=== PATIENT | female | born 1980 | race Caucasian/White ===

== ENCOUNTER 2016-06-17 08:33 | Emergency (ER) | payer BC, MEDICARE ==
[~2016-06-17] VITALS: Ht 170.2 cm; Wt 91.0 kg
[~2016-06-17 08:33] MED LIST: ALPR0.5T10 PO; ASPI-496 PO; ATOR10TA9 PO; BUPR100T11 PO; BUPR75TA6 PO; HYDR-3138 PO; METO-93 PO; METO50TA82 PO; OMEP40CA6 PO; SERT100T5 PO; TRAZ100T15 PO
[2016-06-17] MEDS ORDERED: SODIUM CHLORIDE 0.9% 1,000 ML IV ONE (08:45)
[2016-06-17 08:56] LABS: HEMOGLOBIN 12.7 g/dL (11.7-16.4)
[2016-06-17] MEDS ORDERED: KETOROLAC 30 MG/1 ML IVPush ONE (09:00)
[2016-06-17] MEDS ORDERED: MORPHINE SULFATE 4 MG/ML, 1ML IVPush PRN (09:00)
[2016-06-17] MEDS ORDERED: KETOROLAC 30 MG/1 ML ONE (09:04)
[2016-06-17] MEDS ORDERED: morphine SULFATE 10 MG/ML, 1ML ONE (09:04)
[2016-06-17 09:09] LABS: ASPARTATE AMINO TRANSFERASE 10 U/L (15-37); BLOOD UREA NITROGEN 16 mg/dL (7-18)
[2016-06-17 09:14] LABS: IS PT STATUS REG ER OR PRE ER? YES
[2016-06-17 11:40] VITALS: BP 117/76
== END 2016-06-17 12:36 | disposition left against medical advice (07) ==
LOC: ED 08:48
DX: R07.89 Other chest pain (principal); Z95.0 Presence of cardiac pacemaker
CPT/HCPCS: 36415; 71010; 80053; 83880; 84484; 85025; 85610; 93005; 96361; 96374; 96375; 99285; J1885; J7030

== ENCOUNTER 2016-08-03 20:58 | Emergency (ER) | payer BC, MEDICARE ==
[~2016-08-03] VITALS: Ht 170.2 cm; Wt 84.7 kg
[2016-08-03] MEDS ORDERED: SODIUM CHLORIDE FLUSH 10ML SYR IVF ONE (23:00)
[2016-08-03] MEDS ORDERED: ONDANSETRON 2MG/ML, 2ML IVPush ONE (23:00)
[2016-08-03] MEDS ORDERED: SODIUM CHLORIDE 0.9% 1,000ML IVBOLUS ONE (23:00)
[2016-08-03] MEDS ORDERED: ONDANSETRON 2MG/ML, 2ML ONE (23:03)
[2016-08-03] MEDS ORDERED: MORPHINE SULFATE 4 MG/ML, 1ML ONE (23:03)
[2016-08-03] MEDS: MORPHINE SULFATE 4 MG/ML, 1ML IVPush PRN (23:04)
[2016-08-03 23:22] LABS: BLOOD UREA NITROGEN 19 mg/dL (7-18)
[2016-08-03 23:28] LABS: ASPARTATE AMINO TRANSFERASE 10 U/L (15-37)
[2016-08-03 23:31] LABS: IS PT STATUS REG ER OR PRE ER? YES
[2016-08-04] MEDS ORDERED: MORPHINE SULFATE 4 MG/ML, 1ML ONE (00:38)
[2016-08-04] MEDS: MORPHINE SULFATE 4 MG/ML, 1ML IVPush PRN (00:40)
[2016-08-04 01:37] VITALS: BP 137/67
[2016-08-05] MEDS ORDERED: METO200T3 PO (20:49)
[2016-08-05] MEDS ORDERED: ALPR-475 PO (20:49)
[2016-08-05] MEDS ORDERED: BUPR200T2 PO (20:49)
[2016-08-05] MEDS ORDERED: ATOR80TA75 PO (20:49)
[2016-08-06] MEDS ORDERED: MULT-508 PO (00:09)
[2016-08-06] MEDS ORDERED: APIX5TAB PO (00:09)
== END 2016-08-04 01:39 | disposition home or self-care (01) ==
LOC: ED 08-04 01:33
DX: M94.0 Chondrocostal junction syndrome [Tietze] (principal); R07.89 Other chest pain
CPT/HCPCS: 36415; 71010; 80053; 84484; 85025; 93005; 96361; 96374; 96375; 96376; 99285; J2405; J7030

== ENCOUNTER 2016-08-04 19:42 | Emergency (ER) | payer BC, MEDICARE ==
[~2016-08-04] VITALS: Ht 170.2 cm; Wt 95.0 kg
[2016-08-04] MEDS ORDERED: ONDANSETRON 2MG/ML, 2ML IVPush ONE (21:00)
[2016-08-04] MEDS ORDERED: MORPHINE SULFATE 4 MG/ML, 1ML ONE ×2 (21:10→22:57)
[2016-08-04] MEDS ORDERED: ONDANSETRON 2MG/ML, 2ML ONE (21:11)
[2016-08-04] MEDS: MORPHINE SULFATE 4 MG/ML, 1ML IVPush PRN ×2 (21:17→22:59)
[2016-08-04 21:32] LABS: BLOOD UREA NITROGEN 28 mg/dL (7-18)
[2016-08-04 21:38] LABS: IS PT STATUS REG ER OR PRE ER? YES
[2016-08-05] MEDS ORDERED: HYDROmorphone 1 MG/ML, 1ML ONE (00:11)
[2016-08-05] MEDS ORDERED: HYDROmorphone 1 MG/ML, 1ML IM ONE (00:30)
[2016-08-05 01:19] VITALS: BP 102/74
[2016-08-05] MEDS ORDERED: ATOR80TA75 PO (20:49)
[2016-08-05] MEDS ORDERED: BUPR200T2 PO (20:49)
[2016-08-05] MEDS ORDERED: METO200T3 PO (20:49)
[2016-08-05] MEDS ORDERED: ALPR-475 PO (20:49)
[2016-08-06] MEDS ORDERED: APIX5TAB PO (00:09)
[2016-08-06] MEDS ORDERED: MULT-508 PO (00:09)
== END 2016-08-05 01:28 | disposition home or self-care (01) ==
LOC: ED 21:25
DX: R07.89 Other chest pain (principal)
CPT/HCPCS: 36415; 71010; 80048; 82040; 84484; 85025; 93005; 96372; 96374; 96375; 96376; 99285; J1170; J2405

== ENCOUNTER 2016-08-06 18:57 | Emergency (ER) | payer BC, MEDICARE ==
[~2016-08-06] VITALS: Ht 170.2 cm; Wt 90.2 kg
[~2016-08-06 18:57] MED LIST changes: +ALPR-475 PO; +APIX5TAB PO; +ATOR80TA75 PO; +BUPR200T2 PO; +METO200T3 PO; +MULT-508 PO
[2016-08-06] MEDS ORDERED: ASPIRIN 81 MG TABLET CHEW PO ONE (20:00)
[2016-08-06 21:04] LABS: BLOOD UREA NITROGEN 18 mg/dL (7-18)
[2016-08-06 21:10] LABS: IS PT STATUS REG ER OR PRE ER? YES
[2016-08-06] MEDS ORDERED: ASPIRIN 81 MG TABLET CHEW ONE (21:11)
[2016-08-06] MEDS ORDERED: ONDANSETRON ODT 4 MG ONE (22:23)
[2016-08-06] MEDS ORDERED: ONDANSETRON ODT 4 MG PO ONE (22:30)
[2016-08-06 22:36] VITALS: BP 146/76
== END 2016-08-06 22:39 | disposition home or self-care (01) ==
LOC: ED 21:38
DX: R42 Dizziness and giddiness (principal); Z95.0 Presence of cardiac pacemaker
CPT/HCPCS: 36415; 70450; 71020; 80048; 82040; 84484; 85025; 85379; 93005; 99285; Q0162

== ENCOUNTER 2016-08-24 12:21 | Inpatient (IN) | payer BC, MEDICARE ==
[~2016-08-24] VITALS: Ht 170.2 cm; Wt 88.7 kg
[2016-08-24] MEDS ORDERED: ONDANSETRON 2MG/ML, 2ML IVPush ONE (12:30)
[2016-08-24] MEDS ORDERED: SODIUM CHLORIDE FLUSH 10ML SYR IVF ONE (12:30)
[2016-08-24] MEDS ORDERED: MORPHINE SULFATE 4 MG/ML, 1ML ONE ×3 (12:55→18:05)
[2016-08-24] MEDS ORDERED: ONDANSETRON 2MG/ML, 2ML ONE (12:56)
[2016-08-24] MEDS: MORPHINE SULFATE 4 MG/ML, 1ML IVPush PRN ×2 (12:58→14:42)
[2016-08-24 13:04] LABS: BLOOD UREA NITROGEN 14 mg/dL (7-18)
[2016-08-24] MEDS ORDERED: SODIUM CHLORIDE FLUSH 10ML SYR IVF PRN (14:00)
[2016-08-24 15:30] VITALS: BP 134/81
[2016-08-24] MEDS ORDERED: ONDANSETRON 2MG/ML, 2ML IVPush PRN (16:00)
[2016-08-24] MEDS ORDERED: POLYETHYLENE GLYCOL 17 GM PACKET PO PRN (16:00)
[2016-08-24] MEDS ORDERED: HYDROcodone/APAP 5/325 TABLET PO PRN (16:00)
[2016-08-24] MEDS ORDERED: ENALAPRILAT 1.25 MG/ML, 2ML IVPush PRN (16:00)
[2016-08-24] MEDS ORDERED: TEMAZEPAM 15 MG CAPSULE PO PRN (16:00)
[2016-08-24] MEDS ORDERED: ACETAMINOPHEN 325 MG TABLET PO PRN (16:00)
[2016-08-24] MEDS ORDERED: MULTIVITAMIN 1 TABLET PO PRN (16:00)
[2016-08-24] MEDS: BUPROPION 75 MG TABLET PO SCH ×2 (16:30→22:48)
[2016-08-24] MEDS: ENOXAPARIN 40 MG/0.4 ML SQ SCH (18:27)
[2016-08-24] MEDS: morphine SULFATE 10 MG/ML, 1ML IVPush PRN ×2 (18:28→21:33)
[2016-08-24 18:29] VITALS: BP 134/81
[2016-08-24 20:47] VITALS: BP 147/84
[2016-08-24] MEDS: TRAZODONE 100MG TABLET PO SCH (21:33)
[2016-08-24] MEDS: APIXABAN 5 MG TABLET PO SCH (21:33)
[2016-08-24] MEDS: METOPROLOL SUCCINATE 100 MG TAB.ER.24H PO SCH (21:34)
[2016-08-24 22:30] LABS: IS PT STATUS REG ER OR PRE ER? NO
[2016-08-25 04:49] LABS: IS PT STATUS REG ER OR PRE ER? NO
[2016-08-25 04:51] VITALS: BP 101/64
[2016-08-25] MEDS: morphine SULFATE 10 MG/ML, 1ML IVPush PRN ×5 (04:55→20:28)
[2016-08-25 06:45] VITALS: BP 101/67
[2016-08-25] MEDS: ASPIRIN 81 MG TABLET EC PO SCH (09:36)
[2016-08-25] MEDS: OMEPRAZOLE 20 MG CAPSULE.DR PO SCH (09:37)
[2016-08-25] MEDS: APIXABAN 5 MG TABLET PO SCH ×2 (09:37→20:13)
[2016-08-25] MEDS: METOPROLOL SUCCINATE 100 MG TAB.ER.24H PO SCH ×2 (09:37→20:13)
[2016-08-25] MEDS: BUPROPION 75 MG TABLET PO SCH ×3 (09:37→20:14)
[2016-08-25 14:28] VITALS: BP 101/66
[2016-08-25 19:25] VITALS: BP 98/61
[2016-08-25] MEDS: ATORVASTATIN 40 MG TABLET PO SCH (20:14)
[2016-08-25] MEDS: ENOXAPARIN 40 MG/0.4 ML SQ SCH (20:14)
[2016-08-25] MEDS: TRAZODONE 100MG TABLET PO SCH (20:14)
[2016-08-26 01:10] VITALS: BP 113/67
[2016-08-26] MEDS: morphine SULFATE 10 MG/ML, 1ML IVPush PRN ×5 (01:21→21:03)
[2016-08-26 06:43] VITALS: BP 149/91
[2016-08-26] MEDS: APIXABAN 5 MG TABLET PO SCH ×2 (07:34→21:02)
[2016-08-26] MEDS: METOPROLOL SUCCINATE 100 MG TAB.ER.24H PO SCH ×2 (07:45→21:02)
[2016-08-26] MEDS: BUPROPION 75 MG TABLET PO SCH ×3 (07:45→21:02)
[2016-08-26] MEDS: OMEPRAZOLE 20 MG CAPSULE.DR PO SCH (07:45)
[2016-08-26] MEDS ORDERED: LIDOCAINE 2%, 20ML ONE (11:00)
[2016-08-26] MEDS ORDERED: SODIUM BICARBONATE 4.2%, 5ML ONE (11:00)
[2016-08-26] MEDS: ASPIRIN 81 MG TABLET EC PO SCH (13:00)
[2016-08-26] MEDS: HYDROcodone/APAP 5/325 TABLET PO PRN (16:37)
[2016-08-26 16:38] VITALS: BP 127/82
[2016-08-26 20:00] VITALS: BP 111/72
[2016-08-26] MEDS: ENOXAPARIN 40 MG/0.4 ML SQ SCH (20:00)
[2016-08-26] MEDS: ATORVASTATIN 40 MG TABLET PO SCH (21:02)
[2016-08-26] MEDS: TRAZODONE 100MG TABLET PO SCH (22:20)
[2016-08-27 02:00] VITALS: BP 123/80
[2016-08-27] MEDS: HYDROcodone/APAP 5/325 TABLET PO PRN ×3 (05:07→12:55)
[2016-08-27 07:56] VITALS: BP 123/80
[2016-08-27] MEDS: ATORVASTATIN 40 MG TABLET PO SCH (09:18)
[2016-08-27] MEDS: BUPROPION 75 MG TABLET PO SCH ×3 (09:18→21:41)
[2016-08-27] MEDS: APIXABAN 5 MG TABLET PO SCH ×2 (09:18→21:41)
[2016-08-27] MEDS: OMEPRAZOLE 20 MG CAPSULE.DR PO SCH (09:18)
[2016-08-27] MEDS: ASPIRIN 81 MG TABLET EC PO SCH (09:18)
[2016-08-27] MEDS: METOPROLOL SUCCINATE 100 MG TAB.ER.24H PO SCH ×2 (09:36→21:00)
[2016-08-27] MEDS: morphine SULFATE 10 MG/ML, 1ML IVPush PRN ×2 (16:18→21:41)
[2016-08-27 19:29] VITALS: BP 100/65
[2016-08-27] MEDS: ENOXAPARIN 40 MG/0.4 ML SQ SCH (20:00)
[2016-08-27] MEDS: TRAZODONE 100MG TABLET PO SCH (22:43)
[2016-08-28] VITALS (11 sets, daily range): BP systolic 87–119; BP diastolic 54–78
[2016-08-28] MEDS: morphine SULFATE 10 MG/ML, 1ML IVPush PRN ×2 (07:08→10:47)
[2016-08-28] MEDS: METOPROLOL SUCCINATE 100 MG TAB.ER.24H PO SCH ×2 (08:29→09:00)
[2016-08-28] MEDS: ATORVASTATIN 40 MG TABLET PO SCH (08:29)
[2016-08-28] MEDS: OMEPRAZOLE 20 MG CAPSULE.DR PO SCH (08:29)
[2016-08-28] MEDS: BUPROPION 75 MG TABLET PO SCH ×2 (08:29→15:52)
[2016-08-28] MEDS: ASPIRIN 81 MG TABLET EC PO SCH (08:30)
[2016-08-28] MEDS: APIXABAN 5 MG TABLET PO SCH (08:30)
[2016-08-28] MEDS: HYDROcodone/APAP 5/325 TABLET PO PRN (14:55)
== END 2016-08-28 17:29 | disposition home or self-care (01) | DRG 187 ==
LOC: ED 12:52 → EDIP 13:48 → 5SO 16:00 → 3NE 08-26 07:59
PROVIDERS: ADMIT Internal Medicine; ATTEND Family Medicine
PROC: 0W9B3ZZ Drainage of Left Pleural Cavity, Percutaneous Approach (ICD-10-PCS; principal; 2016-08-26)
DX: J94.8 Other specified pleural conditions (principal); F11.20 Opioid dependence, uncomplicated; J96.10 Chronic respiratory failure, unspecified whether with hypoxia or hypercapnia; R00.1 Bradycardia, unspecified; K21.9 Gastro-esophageal reflux disease without esophagitis; I10 Essential (primary) hypertension; E78.5 Hyperlipidemia, unspecified; F32.9 Major depressive disorder, single episode, unspecified; F41.9 Anxiety disorder, unspecified; E66.9 Obesity, unspecified; F41.1 Generalized anxiety disorder; Z79.01 Long term (current) use of anticoagulants; Z82.49 Family history of ischemic heart disease and other diseases of the circulatory system; Z68.32 Body mass index [BMI] 32.0-32.9, adult; Z95.0 Presence of cardiac pacemaker; I48.2 Chronic atrial fibrillation
CPT/HCPCS: 10022; 10030; 36415; 70450; 71010; 76604; 80048; 82040; 83880; 84443; 84484; 85025; 85610; 85730; 87070; 87075; 87205; 93005; 96374; 96375; 96376; J1650; J2405; J3490; J2270

== ENCOUNTER 2016-09-09 19:17 | Emergency (ER) | payer BC, MEDICARE ==
[~2016-09-09] VITALS: Ht 170.2 cm; Wt 88.5 kg
[2016-09-09] MEDS ORDERED: SODIUM CHLORIDE FLUSH 10ML SYR IVF ONE (20:00)
[2016-09-09] MEDS ORDERED: HYDROmorphone 1 MG/ML, 1ML IVPush PRN (20:00)
[2016-09-09] MEDS ORDERED: SODIUM CHLORIDE 0.9% 1,000ML IVBOLUS ONE (20:00)
[2016-09-09] MEDS ORDERED: ONDANSETRON 2MG/ML, 2ML IVPush ONE (20:00)
[2016-09-09 20:19] LABS: BLOOD UREA NITROGEN 11 mg/dL (7-18)
[2016-09-09] MEDS ORDERED: HYDROmorphone 1 MG/ML, 1ML ONE (20:47)
[2016-09-09] MEDS ORDERED: ONDANSETRON 2MG/ML, 2ML ONE (20:48)
[2016-09-09] MEDS ORDERED: CLON1TAB PO (21:12)
[2016-09-09] MEDS ORDERED: DILT90TA PO (21:12)
[2016-09-10 00:01] VITALS: BP 122/81
== END 2016-09-10 00:04 | disposition home or self-care (01) ==
LOC: ED 20:16
DX: N94.6 Dysmenorrhea, unspecified (principal); E78.5 Hyperlipidemia, unspecified; I10 Essential (primary) hypertension
CPT/HCPCS: 36415; 76830; 80048; 82040; 84703; 85025; 85610; 85730; 93005; 96361; 96374; 96375; 99285; J1170; J2405; J7030

== ENCOUNTER 2016-09-10 16:22 | Emergency (ER) | payer BC, MEDICARE ==
[~2016-09-10] VITALS: Ht 170.2 cm; Wt 88.0 kg
[~2016-09-10 16:22] MED LIST changes: +CLON1TAB PO; +DILT90TA PO
[2016-09-10 18:12] LABS: BLOOD UREA NITROGEN 9 mg/dL (7-18)
[2016-09-10] MEDS ORDERED: HYDROcodone/APAP 5/325 TABLET PO ONE (19:00)
[2016-09-10 19:54] VITALS: BP 120/78
== END 2016-09-10 19:55 | disposition home or self-care (01) ==
LOC: ED 17:30
DX: N92.4 Excessive bleeding in the premenopausal period (principal); N93.8 Other specified abnormal uterine and vaginal bleeding; N92.1 Excessive and frequent menstruation with irregular cycle; I10 Essential (primary) hypertension; E78.5 Hyperlipidemia, unspecified
CPT/HCPCS: 36415; 80048; 82040; 85025; 93005; 99285

== ENCOUNTER 2016-09-14 14:21 | Emergency (ER) | payer BC, MEDICARE ==
[~2016-09-14] VITALS: Ht 170.2 cm; Wt 90.0 kg
[2016-09-14] MEDS ORDERED: ASPIRIN 81 MG TABLET CHEW PO ONE (15:00)
[2016-09-14] MEDS ORDERED: ONDANSETRON 2MG/ML, 2ML IVPush ONE (15:00)
[2016-09-14] MEDS ORDERED: morphine SULFATE 10 MG/ML, 1ML IVPush ONE (15:00)
[2016-09-14] MEDS ORDERED: MORPHINE SULFATE 4 MG/ML, 1ML ONE (15:05)
[2016-09-14] MEDS ORDERED: ONDANSETRON 2MG/ML, 2ML ONE (15:06)
[2016-09-14] MEDS ORDERED: ASPIRIN 81 MG TABLET CHEW ONE (15:06)
[2016-09-14 15:15] LABS: ASPARTATE AMINO TRANSFERASE 8 U/L (15-37); BLOOD UREA NITROGEN 10 mg/dL (7-18)
[2016-09-14 15:21] LABS: IS PT STATUS REG ER OR PRE ER? YES
[2016-09-14] MEDS ORDERED: BUPR300T4 PO (15:25)
[2016-09-14 16:26] VITALS: BP 104/63
== END 2016-09-14 16:27 | disposition home or self-care (01) ==
LOC: ED 16:05
DX: S09.90XA Unspecified injury of head, initial encounter (principal); R55 Syncope and collapse; R07.89 Other chest pain; R42 Dizziness and giddiness; I10 Essential (primary) hypertension; X58.XXXA Exposure to other specified factors, initial encounter; Y93.89 Activity, other specified; Y92.89 Other specified places as the place of occurrence of the external cause; Y99.8 Other external cause status
CPT/HCPCS: 36415; 70450; 71020; 80053; 84484; 85025; 93005; 96374; 96375; 99285; J2270; J2405

== ENCOUNTER 2016-09-18 19:07 | Emergency (ER) | payer BC, MEDICARE ==
[~2016-09-18] VITALS: Ht 170.2 cm; Wt 87.7 kg
[~2016-09-18 19:07] MED LIST changes: +BUPR300T4 PO
[2016-09-18] MEDS ORDERED: OMNIPAQUE 350 MG/ML, 100ML BOTTLE ONE (20:48)
[2016-09-18] MEDS ORDERED: SODIUM CHLORIDE FLUSH 10ML SYR IVF ONE (21:00)
[2016-09-18] MEDS ORDERED: MORPHINE SULFATE 4 MG/ML, 1ML ONE ×2 (21:27→22:25)
[2016-09-18] MEDS: MORPHINE SULFATE 4 MG/ML, 1ML IVPush PRN ×2 (21:35→22:29)
[2016-09-18 21:39] LABS: ASPARTATE AMINO TRANSFERASE 11 U/L (15-37); BLOOD UREA NITROGEN 10 mg/dL (7-18)
[2016-09-18 21:45] LABS: IS PT STATUS REG ER OR PRE ER? YES
[2016-09-18] MEDS ORDERED: ONDANSETRON 2MG/ML, 2ML ONE (22:25)
[2016-09-18] MEDS ORDERED: ONDANSETRON 2MG/ML, 2ML IVPush ONE (22:30)
[2016-09-18 22:45] VITALS: BP 152/89
[2016-09-18] MEDS ORDERED: PROMETHAZINE 25 MG/ML, 1ML ONE (22:57)
[2016-09-18] MEDS ORDERED: PROMETHAZINE 25 MG/ML, 1ML IM ONE (23:30)
== END 2016-09-18 23:58 | disposition home or self-care (01) ==
LOC: ED 21:04
DX: R07.9 Chest pain, unspecified (principal); R68.84 Jaw pain; D25.9 Leiomyoma of uterus, unspecified; E78.5 Hyperlipidemia, unspecified; I10 Essential (primary) hypertension; Z95.0 Presence of cardiac pacemaker
CPT/HCPCS: 36415; 71010; 71275; 80053; 83880; 84484; 85025; 85610; 85730; 93005; 96372; 96374; 96375; 96376; 99285; J2405; J2550; Q9967

== ENCOUNTER 2016-09-23 08:51 | Emergency (ER) | payer BC, MEDICARE ==
[~2016-09-23] VITALS: Ht 170.2 cm; Wt 88.0 kg
[2016-09-23] MEDS ORDERED: SERT100T5 PO (09:07)
[2016-09-23] MEDS ORDERED: ASPIRIN 81 MG TABLET CHEW ONE (09:19)
[2016-09-23] MEDS ORDERED: KETOROLAC 30 MG/1 ML ONE (09:19)
[2016-09-23] MEDS ORDERED: NITROGLYCERIN OINT 2%, 1GM TP ONE ×2 (09:19→09:30)
[2016-09-23] MEDS ORDERED: KETOROLAC 30 MG/1 ML IM ONE (09:30)
[2016-09-23] MEDS ORDERED: ASPIRIN 81 MG TABLET CHEW PO ONE (09:30)
[2016-09-23 09:40] VITALS: BP 142/83
[2016-09-23 09:51] LABS: BLOOD UREA NITROGEN 13 mg/dL (7-18)
[2016-09-23 09:58] LABS: IS PT STATUS REG ER OR PRE ER? YES
[2016-09-23] MEDS ORDERED: OXYcodone/APAP 10/325MG TABLET PO ONE (10:30)
[2016-09-23] MEDS ORDERED: OXYcodone/APAP 10/325MG TABLET ONE (10:37)
== END 2016-09-23 11:45 | disposition home or self-care (01) ==
LOC: ED 09:12
DX: R07.89 Other chest pain (principal); I11.9 Hypertensive heart disease without heart failure; E78.5 Hyperlipidemia, unspecified; Z95.0 Presence of cardiac pacemaker; Z98.51 Tubal ligation status
CPT/HCPCS: 36415; 71010; 80048; 82040; 83880; 84484; 85025; 93005; 96372; 99285; J1885

== ENCOUNTER 2016-10-25 16:38 | Observation (INO) | payer BC, MEDICARE ==
[~2016-10-25] VITALS: Ht 167.6 cm; Wt 91.8 kg
[2016-10-25] MEDS ORDERED: HEPARIN 1,000 UNITS/ML, 10ML ONE (16:49)
[2016-10-25] MEDS ORDERED: LIDOCAINE 2%, 20ML ONE (16:49)
[2016-10-25] MEDS ORDERED: TICAGRELOR 90 MG TABLET ONE (16:49)
[2016-10-25] MEDS ORDERED: FENTANYL PF 100 MCG/2ML ONE (16:49)
[2016-10-25] MEDS ORDERED: MIDAZOLAM 1 MG/ML, 5ML ONE (16:49)
[2016-10-25] MEDS ORDERED: BIVALIRUDIN 250 MG ONE (16:49)
[2016-10-25] MEDS ORDERED: MORPHINE SULFATE 4 MG/ML, 1ML ONE ×3 (16:52→19:07)
[2016-10-25] MEDS: MORPHINE SULFATE 4 MG/ML, 1ML IVPush PRN ×2 (16:54→17:33)
[2016-10-25] MEDS ORDERED: ONDANSETRON 2MG/ML, 2ML ONE (16:58)
[2016-10-25] MEDS ORDERED: SODIUM CHLORIDE FLUSH 10ML SYR IVF ONE ×2 (17:00)
[2016-10-25] MEDS ORDERED: ONDANSETRON 2MG/ML, 2ML IVPush ONE (17:00)
[2016-10-25 17:02] LABS: HEMATOCRIT 34.3 % (34.6-47.8); WHITE BLOOD COUNT 6.4 x10^3/uL (3.4-10)
[2016-10-25 17:09] LABS: BLOOD UREA NITROGEN 10 mg/dL (7-18)
[2016-10-25 17:17] LABS: IS PT STATUS REG ER OR PRE ER? YES
[2016-10-25] MEDS ORDERED: OMNIPAQUE 350 MG/ML, 150 ML BOTTLE ONE (17:38)
[2016-10-25] MEDS: morphine SULFATE 10 MG/ML, 1ML IVPush PRN ×2 (19:10→22:36)
[2016-10-25] MEDS ORDERED: POLYETHYLENE GLYCOL 17 GM PACKET PO PRN (19:30)
[2016-10-25] MEDS ORDERED: hydrALAzine 20 MG/ML, 1ML IVPush PRN (19:30)
[2016-10-25] MEDS ORDERED: ZOLPIDEM 5MG TABLET PO PRN (19:30)
[2016-10-25] MEDS ORDERED: DOCUSATE 100 MG CAPSULE PO PRN (19:30)
[2016-10-25] MEDS ORDERED: ONDANSETRON 2MG/ML, 2ML IVPush PRN (19:30)
[2016-10-25] MEDS ORDERED: NITROGLYCERIN 0.4 MG BOTTLE (25 TABS) SL PRN (19:30)
[2016-10-25] MEDS ORDERED: OXYcodone IR 5MG TABLET PO PRN (19:30)
[2016-10-25] MEDS ORDERED: ACETAMINOPHEN 325 MG TABLET PO PRN (19:30)
[2016-10-25] MEDS ORDERED: BISACODYL 10 MG SUPP PR PRN (19:30)
[2016-10-25] MEDS ORDERED: MULTIVITAMIN 1 TABLET PO PRN (19:30)
[2016-10-25 21:01] VITALS: BP 142/93
[2016-10-25] MEDS: TRAZODONE 100MG TABLET PO SCH (22:36)
[2016-10-25] MEDS: METOPROLOL TARTRATE 100 MG TABLET PO SCH (22:36)
[2016-10-25] MEDS: APIXABAN 5 MG TABLET PO SCH (22:36)
[2016-10-25 23:49] LABS: IS PT STATUS REG ER OR PRE ER? NO
[2016-10-26 02:37] VITALS: BP 107/71
[2016-10-26] MEDS: morphine SULFATE 10 MG/ML, 1ML IVPush PRN ×2 (02:40→09:24)
[2016-10-26 05:46] LABS: BLOOD UREA NITROGEN 10 mg/dL (7-18)
[2016-10-26 05:53] LABS: IS PT STATUS REG ER OR PRE ER? NO
[2016-10-26 06:59] VITALS: BP 108/71
[2016-10-26] MEDS ORDERED: MORPHINE SULFATE 4 MG/ML, 1ML ONE (08:51)
[2016-10-26] MEDS: TEMPLATE NON-FORMULARY MED. (Bupropion Hcl** (Bupropion Xl**) 300 MG) PO SCH (09:00)
[2016-10-26] MEDS ORDERED: OMEPRAZOLE 20 MG CAPSULE.DR PO SCH (09:00)
[2016-10-26] MEDS: DILTIAZEM 90 MG TABLET PO SCH (09:23)
[2016-10-26] MEDS: ATORVASTATIN 80 MG TABLET PO SCH (09:23)
[2016-10-26] MEDS: ASPIRIN 81 MG TABLET EC PO SCH (09:23)
[2016-10-26] MEDS: METOPROLOL TARTRATE 100 MG TABLET PO SCH ×2 (09:23→22:30)
[2016-10-26] MEDS: APIXABAN 5 MG TABLET PO SCH ×2 (09:23→22:30)
[2016-10-26] MEDS: SERTRALINE 100MG TABLET PO SCH (09:23)
[2016-10-26] MEDS ORDERED: MAALOX/HYOSCYAMINE/LIDOCAINE 45 ML BTL PO ONE (10:30)
[2016-10-26 14:11] VITALS: BP 99/67
[2016-10-26] MEDS ORDERED: morphine SULFATE 10 MG/ML, 1ML IVPush PRN (16:00)
[2016-10-26] MEDS: MAALOX/HYOSCYAMINE/LIDOCAINE 45 ML BTL PO PRN (18:22)
[2016-10-26] MEDS ORDERED: FAMOTIDINE 20 MG TABLET PO SCH (21:00)
[2016-10-26 22:25] VITALS: BP 113/69
[2016-10-26] MEDS: TRAZODONE 100MG TABLET PO SCH (22:30)
[2016-10-26] MEDS: OMEPRAZOLE 20 MG CAPSULE.DR PO SCH (22:30)
[2016-10-27 02:52] VITALS: BP 111/64
[2016-10-27 07:59] VITALS: BP 118/72
[2016-10-27] MEDS: TEMPLATE NON-FORMULARY MED. (Bupropion Hcl** (Bupropion Xl**) 300 MG) PO SCH (09:00)
[2016-10-27] MEDS: SERTRALINE 100MG TABLET PO SCH (09:54)
[2016-10-27] MEDS: OMEPRAZOLE 20 MG CAPSULE.DR PO SCH (09:55)
[2016-10-27] MEDS: METOPROLOL TARTRATE 100 MG TABLET PO SCH (09:55)
[2016-10-27] MEDS: ATORVASTATIN 80 MG TABLET PO SCH (09:55)
[2016-10-27] MEDS: ASPIRIN 81 MG TABLET EC PO SCH (09:55)
[2016-10-27] MEDS: DILTIAZEM 90 MG TABLET PO SCH (09:55)
[2016-10-27] MEDS: APIXABAN 5 MG TABLET PO SCH (09:55)
[2016-10-27] MEDS: MAALOX/HYOSCYAMINE/LIDOCAINE 45 ML BTL PO PRN (10:27)
[2016-10-27] MEDS ORDERED: OMEP40CA6 PO (11:25)
[2016-10-27] MEDS ORDERED: FAMO20TA7 PO (11:25)
[2016-10-27] MEDS ORDERED: MAG355OR15 PO (11:28)
== END 2016-10-27 12:45 | disposition home or self-care (01) ==
LOC: EDBD 16:38 → MERGE 16:38 → ED 16:45 → EDIP 18:32 → INTOOBSV 18:32 → 5SO 20:30 → 4WST 10-26 18:23 → DCLOUNGE 10-27 12:10
DX: R07.89 Other chest pain (principal); E78.5 Hyperlipidemia, unspecified; D68.59 Other primary thrombophilia; D50.9 Iron deficiency anemia, unspecified; G89.29 Other chronic pain; I11.9 Hypertensive heart disease without heart failure; I48.91 Unspecified atrial fibrillation; K21.9 Gastro-esophageal reflux disease without esophagitis; F41.9 Anxiety disorder, unspecified; F32.9 Major depressive disorder, single episode, unspecified; J96.10 Chronic respiratory failure, unspecified whether with hypoxia or hypercapnia; Q20.3 Discordant ventriculoarterial connection; Z87.891 Personal history of nicotine dependence; Z95.0 Presence of cardiac pacemaker; Z79.01 Long term (current) use of anticoagulants
CPT/HCPCS: 36415; 71010; 71275; 74175; 80047; 80048; 80061; 82040; 84484; 85025; 85610; 85651; 85730; 86141; 93005; 93306; 96374; 96375; 96376; 99291; G0378; J2270; J2405; Q9967; J0583; J1644; J2250; J3010; J3490

== ENCOUNTER 2016-11-09 14:06 | Emergency (ER) | payer BC, MEDICARE ==
[~2016-11-09] VITALS: Ht 172.7 cm; Wt 90.9 kg
[~2016-11-09 14:06] MED LIST changes: +ATOR-2 PO; -ATOR80TA75 PO; +FAMO20TA7 PO; -HYDR-3138 PO; +HYDR-3237 PO; +MAG355OR15 PO
[2016-11-09 14:16] VITALS: BP 104/74
[2016-11-09 14:29] LABS: HEMATOCRIT 39.3 % (34.6-47.8); HEMOGLOBIN 12.3 g/dL (11.7-16.4); WHITE BLOOD COUNT 6.2 x10^3/uL (3.4-10)
[2016-11-09] MEDS ORDERED: SODIUM CHLORIDE FLUSH 10ML SYR IVF ONE (14:30)
[2016-11-09 14:42] LABS: BLOOD UREA NITROGEN 16 mg/dL (7-18)
[2016-11-09 14:47] LABS: IS PT STATUS REG ER OR PRE ER? YES
== END 2016-11-09 15:47 | disposition left against medical advice (07) ==
LOC: MERGE 14:06 → EDBD 14:06 → EDSEX 14:06 → ED 15:41
DX: S00.83XA Contusion of other part of head, initial encounter (principal); R07.89 Other chest pain; E78.5 Hyperlipidemia, unspecified; I10 Essential (primary) hypertension; Z79.82 Long term (current) use of aspirin; Z79.01 Long term (current) use of anticoagulants; X58.XXXA Exposure to other specified factors, initial encounter; Y93.89 Activity, other specified; Y92.89 Other specified places as the place of occurrence of the external cause; Y99.8 Other external cause status
CPT/HCPCS: 36415; 71010; 80048; 82040; 84484; 85025; 85610; 85730; 99285

== ENCOUNTER 2016-11-26 19:20 | Emergency (ER) | payer BC, MEDICARE ==
[~2016-11-26] VITALS: Ht 170.2 cm; Wt 88.3 kg
[2016-11-26] MEDS ORDERED: SODIUM CHLORIDE FLUSH 10ML SYR IVF ONE (21:00)
[2016-11-26] MEDS ORDERED: ONDANSETRON 2MG/ML, 2ML IVPush ONE (21:00)
[2016-11-26] MEDS ORDERED: SODIUM CHLORIDE 0.9% 1,000ML IVBOLUS ONE (21:00)
[2016-11-26 21:30] LABS: HEMOGLOBIN 12.1 g/dL (11.7-16.4); WHITE BLOOD COUNT 7.9 x10^3/uL (3.4-10)
[2016-11-26 21:37] LABS: BLOOD UREA NITROGEN 20 mg/dL (7-18)
[2016-11-26 21:45] LABS: IS PT STATUS REG ER OR PRE ER? YES
[2016-11-26] MEDS ORDERED: ONDANSETRON 2MG/ML, 2ML ONE (22:05)
[2016-11-26] MEDS ORDERED: MORPHINE SULFATE 4 MG/ML, 1ML ONE (22:05)
[2016-11-26] MEDS: MORPHINE SULFATE 4 MG/ML, 1ML IVPush PRN (22:37)
[2016-11-26] MEDS ORDERED: OMNIPAQUE 350 MG/ML, 100ML BOTTLE ONE (23:00)
[2016-11-27] MEDS ORDERED: MORPHINE SULFATE 4 MG/ML, 1ML ONE (00:09)
[2016-11-27] MEDS: MORPHINE SULFATE 4 MG/ML, 1ML IVPush PRN (00:13)
[2016-11-27 00:51] LABS: IS PT STATUS REG ER OR PRE ER? YES
[2016-11-27 01:27] VITALS: BP 123/75
== END 2016-11-27 01:29 | disposition home or self-care (01) ==
LOC: ED 23:59
DX: R07.89 Other chest pain (principal); I10 Essential (primary) hypertension; E78.5 Hyperlipidemia, unspecified; E66.9 Obesity, unspecified; Z79.01 Long term (current) use of anticoagulants; Z79.82 Long term (current) use of aspirin; Z95.0 Presence of cardiac pacemaker
CPT/HCPCS: 36415; 71020; 71275; 80048; 82040; 84484; 85025; 93005; 96361; 96374; 96375; 96376; 99285; J2405; J7030; Q9967

== ENCOUNTER 2016-11-28 13:10 | Emergency (ER) | payer BC, MEDICARE ==
[~2016-11-28] VITALS: Ht 170.2 cm; Wt 90.0 kg
[2016-11-28] MEDS ORDERED: SODIUM CHLORIDE FLUSH 10ML SYR IVF ONE (14:00)
[2016-11-28] MEDS ORDERED: SODIUM CHLORIDE 0.9% 1,000ML IVBOLUS ONE ×2 (14:00→15:30)
[2016-11-28 14:25] LABS: HEMATOCRIT 38.4 % (34.6-47.8); HEMOGLOBIN 12.4 g/dL (11.7-16.4); WHITE BLOOD COUNT 7.4 x10^3/uL (3.4-10)
[2016-11-28 14:37] LABS: BLOOD UREA NITROGEN 14 mg/dL (7-18)
[2016-11-28 14:42] LABS: ASPARTATE AMINO TRANSFERASE 11 U/L (15-37)
[2016-11-28 14:46] LABS: IS PT STATUS REG ER OR PRE ER? YES
[2016-11-28] MEDS ORDERED: LORazepam 2 MG/ML, 1ML ONE (16:05)
[2016-11-28] MEDS ORDERED: LORazepam 2 MG/ML, 1ML IVPush ONE (16:30)
[2016-11-28 17:32] VITALS: BP 122/60
== END 2016-11-28 17:30 | disposition home or self-care (01) ==
LOC: ED 14:31
DX: R07.89 Other chest pain (principal); I10 Essential (primary) hypertension; E78.5 Hyperlipidemia, unspecified; Z95.5 Presence of coronary angioplasty implant and graft
CPT/HCPCS: 36415; 71010; 80053; 84484; 85025; 93005; 96361; 96374; 99285; J2060; J7030

== ENCOUNTER 2017-01-27 11:59 | Emergency (ER) | payer BC, MEDICARE ==
[~2017-01-27] VITALS: Ht 170.2 cm; Wt 89.3 kg
[~2017-01-27 11:59] MED LIST changes: -METO200T3 PO; +METO200T5 PO
[2017-01-27] MEDS ORDERED: BACL20TA PO (12:33)
[2017-01-27] MEDS ORDERED: GABA300C10 PO (12:33)
[2017-01-27] MEDS ORDERED: SODIUM CHLORIDE FLUSH 10ML SYR IVF ONE (13:00)
[2017-01-27] MEDS ORDERED: LORazepam 1MG TABLET PO ONE (13:00)
[2017-01-27] MEDS ORDERED: LORazepam 1MG TABLET ONE (13:04)
[2017-01-27 13:20] LABS: HEMOGLOBIN 10.4 g/dL (11.7-16.4)
[2017-01-27 13:30] LABS: BLOOD UREA NITROGEN 11 mg/dL (7-18)
[2017-01-27 13:34] LABS: IS PT STATUS REG ER OR PRE ER? YES
[2017-01-27] MEDS ORDERED: MAALOX/HYOSCYAMINE/LIDOCAINE 45 ML BTL ONE (14:13)
[2017-01-27 14:30] VITALS: BP 132/81
[2017-01-27] MEDS ORDERED: ONDANSETRON ODT 4 MG PO ONE (14:30)
[2017-01-27] MEDS ORDERED: MAALOX/HYOSCYAMINE/LIDOCAINE 45 ML BTL PO ONE (14:30)
[2017-01-27] MEDS ORDERED: ONDANSETRON ODT 4 MG ONE (14:32)
[2017-01-27 15:09] LABS: IS PT STATUS REG ER OR PRE ER? YES
== END 2017-01-27 16:02 | disposition home or self-care (01) ==
LOC: ED 12:36
DX: R07.2 Precordial pain (principal); I10 Essential (primary) hypertension; E78.5 Hyperlipidemia, unspecified; E66.9 Obesity, unspecified
CPT/HCPCS: 36415; 71010; 80048; 82040; 84484; 85025; 93005; 99285; Q0162

== ENCOUNTER 2017-03-13 12:21 | Observation (INO) | payer BC, MEDICARE ==
[~2017-03-13] VITALS: Ht 170.2 cm; Wt 91.7 kg
[~2017-03-13 12:21] MED LIST changes: +BACL20TA PO; +GABA300C10 PO
[2017-03-13] MEDS ORDERED: METO50TA82 PO (12:50)
[2017-03-13] MEDS ORDERED: IRON1TAB60 PO (12:55)
[2017-03-13] MEDS ORDERED: SODIUM CHLORIDE FLUSH 10ML SYR IVF ONE (13:30)
[2017-03-13 13:48] LABS: MEAN CORPUSCULAR HGB CONC 31.5 g/dL (32.4-35.8); MEAN CORPUSCULAR VOLUME 69.9 fL (80-100); PLATELET COUNT 282 x10^3/uL (130-400); RED BLOOD COUNT 4.79 x10^6/uL (3.82-5.3); RED CELL DISTRIBUTION WIDTH 22.9 % (9.6-15.2)
[2017-03-13] MEDS ORDERED: MORPHINE SULFATE 4 MG/ML, 1ML ONE ×2 (13:48→16:14)
[2017-03-13 13:54] LABS: INTERNATIONAL NORMALIZED RATIO 1.11 (0.93-1.1); PROTHROMBIN TIME 11.5 Seconds (9.6-11.5)
[2017-03-13 13:58] LABS: ALBUMIN 3.8 g/dL (3.4-5.0); ANION GAP 9 mmol/L (5-15); CALCIUM 8.4 mg/dL (8.5-10.1); CHLORIDE 109 mmol/L (98-107)
[2017-03-13] MEDS: MORPHINE SULFATE 4 MG/ML, 1ML IVPush PRN ×2 (14:01→16:16)
[2017-03-13 14:03] LABS: ALANINE AMINOTRANSFERASE 20 U/L (12-78); ALKALINE PHOSPHATASE 52 U/L (45-117); BILIRUBIN,TOTAL 0.7 mg/dL (0.2-1.0); CREATININE 0.95 mg/dL (0.55-1.02); TOTAL PROTEIN 7.5 g/dL (6.4-8.2); TROPONIN I < 0.015 ng/mL (0.000-0.045)
[2017-03-13] MEDS ORDERED: ONDANSETRON 2MG/ML, 2ML ONE (14:04)
[2017-03-13] MEDS ORDERED: ONDANSETRON 2MG/ML, 2ML IVPush ONE (14:30)
[2017-03-13 14:34] LABS: MD YES
[2017-03-13 14:36] LABS: LYMPH#(MANUAL) 0.68 x10^3/uL (1-3.4); LYMPHS% (MANUAL) 9 % (22-44); MONOS% (MANUAL) 8 % (2-9); SEG#(MANUAL) 6.23 x10^3/uL (1.8-6.8); SEGS% (MANUAL) 83 % (42-75)
[2017-03-13 14:37] LABS: <PLATELET ESTIMATE> ADEQUATE; <PLT MORPHOLOGY> NORMAL PLT MORPH; ANISOCYTOSIS 2+; HYPOCHROMIA 2+; MICROCYTOSIS 2+
[2017-03-13] MEDS ORDERED: CEPHALEXIN 500 MG CAPSULE PO SCH (16:00)
[2017-03-13] MEDS ORDERED: CEPHALEXIN 500 MG CAPSULE ONE (16:14)
[2017-03-13 16:40] VITALS: BP 152/84
[2017-03-13] MEDS ORDERED: NITROGLYCERIN 0.4 MG BOTTLE (25 TABS) SL PRN (18:00)
[2017-03-13] MEDS ORDERED: hydrALAzine 20 MG/ML, 1ML IVPush PRN (18:00)
[2017-03-13] MEDS ORDERED: ALUMINUM/MAG/SIMETHICONE 30 ML UDC PO PRN ×2 (18:00→19:00)
[2017-03-13] MEDS ORDERED: ONDANSETRON 2MG/ML, 2ML IVPush PRN (18:00)
[2017-03-13] MEDS ORDERED: MULTIVITAMIN 1 TABLET PO PRN (18:00)
[2017-03-13] MEDS ORDERED: ONDANSETRON ODT 4 MG PO PRN (18:00)
[2017-03-13 18:55] LABS: FREE T4 (FREE THYROXINE) 0.92 ng/dL (0.76-1.46); TROPONIN I < 0.015 ng/mL (0.000-0.045)
[2017-03-13 19:05] VITALS: BP 143/85
[2017-03-13] MEDS ORDERED: METOPROLOL TARTRATE 50 MG TABLET ONE (19:52)
[2017-03-13] MEDS: APIXABAN 5 MG TABLET PO SCH (19:59)
[2017-03-13] MEDS: METOPROLOL TARTRATE 50 MG TABLET PO SCH (20:00)
[2017-03-13] MEDS: OMEPRAZOLE 20 MG CAPSULE.DR PO SCH (20:00)
[2017-03-13] MEDS: HYDROcodone/APAP 5/325 TABLET PO PRN (20:05)
[2017-03-13] MEDS ORDERED: BACLOFEN 10 MG TABLET PO SCH (21:00)
[2017-03-13] MEDS ORDERED: GABAPENTIN 300 MG CAPSULE PO SCH (21:00)
[2017-03-13] MEDS ORDERED: TRAZODONE 100MG TABLET PO SCH (21:00)
[2017-03-13] MEDS: morphine SULFATE 10 MG/ML, 1ML IVPush PRN (23:00)
[2017-03-13 23:53] LABS: TROPONIN I < 0.015 ng/mL (0.000-0.045)
[2017-03-14 00:21] VITALS: BP 128/79
[2017-03-14] MEDS: HYDROcodone/APAP 5/325 TABLET PO PRN (04:17)
[2017-03-14 05:14] LABS: BASOPHILS # (AUTO) 0.05 x10^3/uL (0-0.1); BASOPHILS % (AUTO) 1 % (0-1); EOSINOPHILS # (AUTO) 0.24 x10^3/uL (0-0.4); EOSINOPHILS % (AUTO) 4 % (1-7); LYMPHOCYTES # (AUTO) 1.17 x10^3/uL (1-3.4); LYMPHOCYTES % (AUTO) 21 % (22-44); MD NO; MEAN CORPUSCULAR HEMOGLOBIN 22.2 pg (27.0-34.8); MEAN CORPUSCULAR HGB CONC 31.3 g/dL (32.4-35.8); MEAN CORPUSCULAR VOLUME 70.9 fL (80-100); MEAN PLATELET VOLUME 10.3 fL (7.4-10.4); MONOCYTES # (AUTO) 0.55 x10^3/uL (0.2-0.8); MONOCYTES % (AUTO) 10 % (2-9); NEUTROPHILS # (AUTO) 3.63 x10^3/uL (1.8-6.8); NEUTROPHILS % (AUTO) 64 % (42-75); PLATELET COUNT 278 x10^3/uL (130-400); RED BLOOD COUNT 4.46 x10^6/uL (3.82-5.3); RED CELL DISTRIBUTION WIDTH 22.3 % (9.6-15.2)
[2017-03-14 05:22] LABS: ANION GAP 9 mmol/L (5-15); CALCIUM 7.8 mg/dL (8.5-10.1); CHLORIDE 110 mmol/L (98-107)
[2017-03-14 05:27] LABS: CHOL/HDL RATIO 3.7; CHOLESTEROL, TOTAL 97 mg/dL (140-239); CREATININE 1.03 mg/dL (0.55-1.02); HDL CHOL % 27 % (28-40); HDL CHOLESTEROL (DIRECT) 26 mg/dL (40-60); LDL CHOLESTEROL,CALCULATED 17 mg/dL (54-169); LDL/HDL RATIO 0.7 (0.5-3.0); TRIGLYCERIDES 270 mg/dL (50-200); VLDL CHOLESTEROL 54 mg/dL (0-25)
[2017-03-14] MEDS: morphine SULFATE 10 MG/ML, 1ML IVPush PRN (08:36)
[2017-03-14] MEDS: OMEPRAZOLE 20 MG CAPSULE.DR PO SCH (08:36)
[2017-03-14] MEDS: METOPROLOL TARTRATE 50 MG TABLET PO SCH (08:36)
[2017-03-14] MEDS: APIXABAN 5 MG TABLET PO SCH (08:37)
[2017-03-14 08:42] VITALS: BP 145/86
[2017-03-14] MEDS ORDERED: ASPIRIN 325 MG TABLET EC PO SCH (09:00)
[2017-03-14] MEDS ORDERED: DILTIAZEM 90 MG TABLET PO SCH (09:00)
[2017-03-14] MEDS ORDERED: MULTIVITAMINS WITH IRON TABLET PO SCH (09:00)
[2017-03-14] MEDS ORDERED: BUPROPION SR 150 MG TABLET PO SCH (09:00)
[2017-03-14] MEDS ORDERED: ATORVASTATIN 40 MG TABLET PO SCH (09:00)
[2017-03-14] MEDS ORDERED: SERTRALINE 100MG TABLET PO SCH (09:00)
[2017-03-14] MEDS ORDERED: AMOX1TAB64 PO (09:53)
== END 2017-03-14 11:35 | disposition home or self-care (01) ==
LOC: ED 15:30 → INTOOBSV 15:31 → EDIP 15:31 → ED 16:20 → 5SO 16:35
PROVIDERS: ADMIT Internal Medicine; ATTEND Internal Medicine
DX: R07.9 Chest pain, unspecified (principal); K21.9 Gastro-esophageal reflux disease without esophagitis; I48.91 Unspecified atrial fibrillation; G89.4 Chronic pain syndrome; E78.5 Hyperlipidemia, unspecified; I11.9 Hypertensive heart disease without heart failure; F32.9 Major depressive disorder, single episode, unspecified; D64.9 Anemia, unspecified; Z95.0 Presence of cardiac pacemaker
CPT/HCPCS: 36415; 71045; 80048; 80053; 80061; 83690; 83880; 84439; 84443; 84484; 85025; 85610; 85730; 93005; 96374; 96375; 96376; 99285; G0378; J2270; J2405; Q0162

== ENCOUNTER 2017-06-11 10:34 | Emergency (ER) | payer BC, MEDICARE ==
[~2017-06-11 10:34] MED LIST changes: +AMOX1TAB64 PO; +IRON1TAB60 PO; +METO200T47 PO; -METO200T5 PO
[2017-06-11 10:37] VITALS: BP 159/78
[2017-06-11] MEDS ORDERED: KETOROLAC 60 MG/2 ML IV ONE (11:00)
[2017-06-11] MEDS ORDERED: SODIUM CHLORIDE FLUSH 10ML SYR IVF ONE (11:00)
[2017-06-11] MEDS ORDERED: PLEASE ENTER WEIGHT MC SCH (11:00)
[2017-06-11] MEDS ORDERED: FAMO20TA7 PO (11:06)
[2017-06-11] MEDS ORDERED: HYDR-3237 PO (11:06)
[2017-06-11] MEDS ORDERED: BUPR-86 PO (11:06)
[2017-06-11] MEDS ORDERED: PROM25SU34 RC (11:06)
[2017-06-11] MEDS ORDERED: DULO30CA2 PO (11:06)
[2017-06-11] MEDS ORDERED: HYDR25TA11 PO (11:06)
[2017-06-11] MEDS ORDERED: KETOROLAC 30 MG/1 ML ONE (11:09)
[2017-06-11] MEDS ORDERED: ONDANSETRON ODT 4 MG ONE (11:13)
[2017-06-11 11:24] LABS: BASOPHILS # (AUTO) 0.04 x10^3/uL (0-0.1); BASOPHILS % (AUTO) 1 % (0-1); EOSINOPHILS # (AUTO) 0.21 x10^3/uL (0-0.4); EOSINOPHILS % (AUTO) 3 % (1-7); LYMPHOCYTES % (AUTO) 15 % (22-44); MD NO; MEAN CORPUSCULAR HEMOGLOBIN 23.8 pg (27.0-34.8); MEAN CORPUSCULAR HGB CONC 32.1 g/dL (32.4-35.8); MEAN CORPUSCULAR VOLUME 74.2 fL (80-100); MEAN PLATELET VOLUME 9.2 fL (7.4-10.4); MONOCYTES # (AUTO) 0.44 x10^3/uL (0.2-0.8); MONOCYTES % (AUTO) 7 % (2-9); NEUTROPHILS # (AUTO) 5.05 x10^3/uL (1.8-6.8); NEUTROPHILS % (AUTO) 75 % (42-75); PLATELET COUNT 258 x10^3/uL (130-400); RED BLOOD COUNT 4.86 x10^6/uL (3.82-5.3); RED CELL DISTRIBUTION WIDTH 21.5 % (9.6-15.2)
[2017-06-11] MEDS ORDERED: ONDANSETRON ODT 4 MG PO ONE (11:30)
[2017-06-11 11:32] LABS: ALBUMIN 3.6 g/dL (3.4-5.0); ANION GAP 7 mmol/L (5-15); CALCIUM 8.4 mg/dL (8.5-10.1); CHLORIDE 110 mmol/L (98-107); CREATININE 0.74 mg/dL (0.55-1.02)
[2017-06-11 11:36] LABS: TROPONIN I < 0.015 ng/mL (0.000-0.045)
[2017-06-11] MEDS ORDERED: CYCLOBENZAPRINE 10 MG TABLET ONE (11:48)
[2017-06-11] MEDS ORDERED: CYCLOBENZAPRINE 10 MG TABLET PO ONE (12:00)
== END 2017-06-11 12:30 | disposition home or self-care (01) ==
LOC: ED 11:07
DX: R07.89 Other chest pain (principal); E78.5 Hyperlipidemia, unspecified; I10 Essential (primary) hypertension; E66.9 Obesity, unspecified; Z79.01 Long term (current) use of anticoagulants
CPT/HCPCS: 36415; 71045; 80048; 82040; 84484; 85025; 85379; 93005; 96374; 99285; J1885; Q0162

== ENCOUNTER 2017-12-16 13:12 | Emergency (ER) | payer BC, MEDICARE ==
[~2017-12-16] VITALS: Ht 170.2 cm; Wt 83.6 kg
[~2017-12-16 13:12] MED LIST changes: +BUPR-86 PO; +DULO30CA2 PO; +HYDR25TA11 PO; +PROM25SU34 RC; +TRAZ-137 PO; -TRAZ100T15 PO
[2017-12-16 13:55] LABS: BASOPHILS # (AUTO) 0.04 x10^3/uL (0-0.1); BASOPHILS % (AUTO) 0 % (0-1); EOSINOPHILS # (AUTO) 0.33 x10^3/uL (0-0.4); EOSINOPHILS % (AUTO) 4 % (1-7); LYMPHOCYTES # (AUTO) 1.47 x10^3/uL (1-3.4); LYMPHOCYTES % (AUTO) 16 % (22-44); MD NO; MEAN CORPUSCULAR HEMOGLOBIN 24.5 pg (27.0-34.8); MEAN CORPUSCULAR HGB CONC 32.4 g/dL (32.4-35.8); MEAN CORPUSCULAR VOLUME 75.8 fL (80-100); MONOCYTES # (AUTO) 0.75 x10^3/uL (0.2-0.8); MONOCYTES % (AUTO) 8 % (2-9); NEUTROPHILS # (AUTO) 6.39 x10^3/uL (1.8-6.8); NEUTROPHILS % (AUTO) 71 % (42-75); PLATELET COUNT 292 x10^3/uL (130-400); RED BLOOD COUNT 5.37 x10^6/uL (3.82-5.3); RED CELL DISTRIBUTION WIDTH 17.4 % (9.6-15.2)
[2017-12-16] MEDS ORDERED: SODIUM CHLORIDE FLUSH 10ML SYR IVF ONE (14:00)
[2017-12-16 14:06] LABS: INTERNATIONAL NORMALIZED RATIO 1.02 (0.93-1.1); PROTHROMBIN TIME 10.5 Seconds (9.6-11.5)
[2017-12-16 14:08] LABS: ALBUMIN 3.7 g/dL (3.4-5.0); ANION GAP 8 mmol/L (5-15); CALCIUM 8.1 mg/dL (8.5-10.1); CHLORIDE 110 mmol/L (98-107)
[2017-12-16 14:16] LABS: ALANINE AMINOTRANSFERASE 65 U/L (12-78); ALKALINE PHOSPHATASE 56 U/L (45-117); BILIRUBIN,TOTAL 0.4 mg/dL (0.2-1.0); CREATININE 0.74 mg/dL (0.55-1.02); TOTAL PROTEIN 7.5 g/dL (6.4-8.2); TROPONIN I < 0.015 ng/mL (0.000-0.045)
[2017-12-16] MEDS ORDERED: MORPHINE SULFATE 4 MG/ML, 1ML IVPush PRN (14:30)
[2017-12-16 16:31] LABS: TROPONIN I < 0.015 ng/mL (0.000-0.045)
[2017-12-16 17:29] VITALS: BP 108/65
== END 2017-12-16 17:31 | disposition home or self-care (01) ==
LOC: ED 15:29
DX: R07.89 Other chest pain (principal); I10 Essential (primary) hypertension; F17.200 Nicotine dependence, unspecified, uncomplicated; E78.5 Hyperlipidemia, unspecified; Z86.711 Personal history of pulmonary embolism; Z88.2 Allergy status to sulfonamides; Z88.1 Allergy status to other antibiotic agents; Z98.51 Tubal ligation status; Z95.0 Presence of cardiac pacemaker
CPT/HCPCS: 36415; 71045; 80053; 84484; 85025; 85610; 85730; 93005; 99285